=== PATIENT | male | born 1975 | race Caucasian/White ===

== ENCOUNTER 2019-06-12 11:02 | Emergency (ER) | payer OTHER ==
[2019-06-12] MEDS ORDERED: Adacel Vial IM ONE ×2 (11:42→11:44)
--- NOTE | 2019-06-12 12:08 | ERPHSYRPT ---
- History of Present Illness Time Seen by Provider: 06/12/19 11:20 Source: patient Exam Limitations: no limitations Patient Subjective Stated Complaint: Pt states "I went to the clinic for my left ear and now I am here. I have not taken my meds in two days, I am stressed , and now I am mad." Triage Nursing Assessment: Pt presented through the front with a nurse from [facility]. nurse stated that he came for his ear and when they took his pressure it was high so they said to get to the ed. Pt presented alert and oriented X 3, skin pwd. PT irritable, able to speak in clear full sentences. Physician History: Parient reports went to Clinic because of L ear - not hearing well, thinks miight be wax. Also wanted a tetanus shot - stepped on a tac R great toe on Tuesday. Sent to ER because of high BP - under stress - family member situation and missed BP meds for 2 days. Severity: mild Modifying Factors: Improves With: nothing Associated Symptoms: denies symptoms Allergies/Adverse Reactions: No Known Drug Allergies Allergy (Unverified 06/12/19 11:15) Home Medications: Amlodipine Besylate 5 mg PO DAILY 06/12/19 [History] Clonazepam 0.5 mg [Klonopin 0.5 MG] 0.5 mg PO DAILY 06/12/19 [History] Loratadine 10 mg PO DAILY 06/12/19 [History] Sertraline HCl 100 mg PO DAILY 06/12/19 [History] Valsartan [Diovan] 80 mg PO DAILY 06/12/19 [History] Hx Tetanus, Diphtheria Vaccination/Date Given: No Hx Influenza Vaccination/Date Given: No Hx Pneumococcal Vaccination/Date Given: No Immunizations Up to Date: Yes - Review of Systems Constitutional: No Symptoms Ears, Nose, & Throat: Hearing Changes (Useds to have to flush out ears at times) Respiratory: No Symptoms Cardiac: No Symptoms Musculoskeletal: No Symptoms Skin: Other (small puncture wound R geat toe Satuday) All Other Systems: Reviewed and Negative - Past Medical History Pertinent Past Medical History: Yes Neurological History: No Pertinent History ENT History: No Pertinent History Cardiac History: Hypertension Respiratory History: No Pertinent History Endocrine Medical History: Hypothyroidism Musculoskeletal History: No Pertinent History GI Medical History: No Pertinent History History: No Pertinent History Psycho-Social History: Depression Male Reproductive Disorders: No Pertinent History - Past Surgical History Past Surgical History: No - Social History Smoking Status: Former smoker Exposure to second hand smoke: Yes Drug Use: none Patient Lives Alone: Yes - Nursing Vital Signs Nursing Vital Signs: Initial Vital Signs Temperature 99.1 F 06/12/19 11:08 Pulse Rate 84 06/12/19 11:08 Respiratory Rate 18 06/12/19 11:08 Blood Pressure 195/118 06/12/19 11:08 O2 Sat by Pulse Oximetry 92 L 06/12/19 11:08 Pain Scale Pain Intensity 0 - Physical Exam General Appearance: mild distress (Very anxious; irritated) Ears, Nose, Throat Exam: TMs normal (Left ear - cerumen present TM visible and WNL) Respiratory Exam: normal breath sounds, lungs clear Cardiovascular Exam: regular rate/rhythm, normal heart sounds, normal peripheral pulses Skin Exam: normal color, warm, dry SpO2 Interpretation: normal SpO2: 92 O2 Delivery: Room Air - Course Nursing assessment & vital signs reviewed: Yes Ordered Tests: Medication Summary Discontinued Medications Generic Name Dose Route Start Last Admin Trade Name Freq PRN Reason Stop Dose Admin Diphtheria/Tetanus/Acell Pertussis 0.5 ml 06/12/19 11:42 06/12/19 11:46 Adacel Vial IM 06/12/19 11:43 0.5 ml .ONCE ONE Administration Diphtheria/Tetanus/Acell Pertussis Confirm 06/12/19 11:44 Adacel Vial Administered 06/12/19 11:45 Dose 0.5 ml IM .STK-MED ONE - Progress Progress Note: 06/12/19 12:05 BP while in ER on second reading (after patient examined) 140/80s NAD - will DC - had TDAP. Follow up with primary care as needed. - Departure Departure Disposition: Home Clinical Impression: Otalgia of left ear Condition: Stable Critical Care Time: No Referrals: JERRY JOYCE MD [Primary Care Provider] - Additional Instructions: Take your blood pressure medications - otherwise follow up with primary care as needed
[2019-06-12 12:19] VITALS: BP 169/121; PULSE 88
[2019-06-12 14:51] VITALS: O2SAT 92
== END 2019-06-12 12:35 | disposition home or self-care (01) ==
LOC: ED 11:02
DX: H92.02 Otalgia, left ear (principal); I10 Essential (primary) hypertension
CPT/HCPCS: 90471; 90715; 93005; 99284